=== PATIENT | female | born 1965 | race Two or more races ===

== ENCOUNTER 2019-07-02 07:21 | Outpatient (CLI) | payer OTHER | END 2019-07-02 07:24 | disposition home or self-care (01) | LOC: SONOGRAMA 07:21 | DX: E04.1 Nontoxic single thyroid nodule (principal) ==

== ENCOUNTER 2019-08-30 07:05 | Outpatient (CLI) | payer OTHER | END 2019-08-30 07:08 | disposition home or self-care (01) | LOC: SONOGRAMA 07:05 | DX: E04.1 Nontoxic single thyroid nodule (principal) ==